=== PATIENT | female | born 1970 | race Two or more races ===

== ENCOUNTER → 2017-03-11 | Outpatient (CLI) | payer OTHER ==
--- NOTE | 2017-03-11 12:12 | REP ---
LEFT FIFTH TOE: Four views of the left 5th toe are performed. There is a nondisplaced fracture of the base of the proximal phalanx. No other acute fracture, dislocation or intrinsic bone disease is visualized. Signed by Abebe Johnson MD 03/11/2017 07:59 P
== END ==
LOC: M LRY 11:09
PROVIDERS: ATTEND Nurse Practitioner Family
DX: S92.515A Nondisplaced fracture of proximal phalanx of left lesser toe(s), initial encounter for closed fracture (principal); X58.XXXA Exposure to other specified factors, initial encounter; Y92.89 Other specified places as the place of occurrence of the external cause; Y93.89 Activity, other specified; Y99.8 Other external cause status

== ENCOUNTER → 2022-04-23 | Outpatient (CLI) | payer OTHER | LOC: M SOG 07:59 | PROVIDERS: ATTEND Orthopaedic Surgery Hand Surgery | DX: S52.531A Colles' fracture of right radius, initial encounter for closed fracture (principal); X58.XXXA Exposure to other specified factors, initial encounter ==

== ENCOUNTER → 2022-05-14 | Outpatient (CLI) | payer OTHER | LOC: M SOG 08:01 | PROVIDERS: ATTEND Orthopaedic Surgery Hand Surgery | DX: S52.531A Colles' fracture of right radius, initial encounter for closed fracture (principal); W18.30XA Fall on same level, unspecified, initial encounter; Y92.009 Unspecified place in unspecified non-institutional (private) residence as the place of occurrence of the external cause ==